=== PATIENT | male | born 1995 | race American Indian/Alaskan Native ===

== ENCOUNTER 2021-10-29 20:59 | Emergency (ER) | payer BC ==
[2021-10-29 22:11] VITALS: BP 147/94
--- NOTE | 2021-10-29 22:18 | XRay Report ---
CHEST 2 VIEWS INDICATION / CLINICAL INFORMATION: Chest pain. COMPARISON: None available. FINDINGS: SUPPORT DEVICES: None. HEART / MEDIASTINUM: No significant abnormality. LUNGS / PLEURA: No significant pulmonary abnormality. No significant pleural effusion. No pneumothora x. ADDITIONAL FINDINGS: No significant additional findings. IMPRESSION: 1. No acute abnormality of the chest. Signer Name: Teodoro Dong MD Signed: 10/29/2021 10:13 PM Workstation Name: [id number]
[2021-10-30] MEDS ORDERED: ALUM-MAG HYDROXIDE-SIMETHICONE 200-200-20MG/5ML ORAL LIQD 30 ML PO ONE (01:01)
[2021-10-30] MEDS ORDERED: LIDOCAINE VISCOUS 2% 15 ML ORAL LIQD PO ONE (01:01)
[2021-10-30] MEDS ORDERED: FAMOTIDINE 20 MG TAB PO ONE (01:01)
--- NOTE | 2021-10-30 05:57 | Emergency Department Report ---
ED General Adult HPI - General Chief complaint: Chest Pain Stated complaint: CHEST PAIN Source: patient Mode of arrival: Ambulatory Limitations: No Limitations - History of Present Illness Initial comments: Patient is a 26-year-old -[place] male with a history of morbid obesity who presents to the ED with complaint of acute onset persistent burning epigastric intermittent pain that radiates to the substernal area of the chest wall for the last 1 week. Patient states that the pain is worse whenever he eats any food or when he lays down to sleep. Patient denies cough, nausea and vomiting, diarrhea, dysuria, urinary frequency and urgency, shortness of breath, back pain, traumatic injury, heavy lifting, hematemesis, fever, chills, palpitations, headache, neck pain or diarrhea. MD Complaint: epigastric pain radiating to chest wall with burning sensation -: Gradual, week(s) (1) Location: chest, abdomen (epigastric) Radiation: non-radiation Severity scale (0 -10): 7 Quality: burning, aching Consistency: intermittent Improves with: none Worsens with: eating Associated Symptoms: denies other symptoms, chest pain, loss of appetite. denies: confusion, cough, diaphoresis, fever/chills, headaches, malaise, nausea/vomiting, rash, seizure, shortness of breath, syncope, weakness Treatments Prior to Arrival: none - Related Data Allergies Allergy/AdvReac Type Severity Reaction Status Date / Time No Known Allergies Allergy Unverified 10/29/21 21:55 ED Review of Systems ROS: Stated complaint: CHEST PAIN Other details as noted in HPI Constitutional: denies: chills, fever Eyes: denies: eye pain, eye discharge, vision change ENT: denies: ear pain, throat pain Respiratory: denies: cough, shortness of breath, wheezing Cardiovascular: chest pain (substernal). denies: palpitations Endocrine: no symptoms reported Gastrointestinal: abdominal pain (epigastric). denies: nausea, vomiting, diarrhea Genitourinary: denies: urgency, dysuria Musculoskeletal: denies: back pain, joint swelling, arthralgia Skin: denies: rash, lesions Neurological: denies: headache, weakness, paresthesias Psychiatric: denies: anxiety, depression Hematological/Lymphatic: denies: easy bleeding, easy bruising ED Past Medical Hx - Past Medical History Previous Medical History?: Yes Additional medical history: Morbid Obesity - Surgical History Past Surgical History?: Yes Additional Surgical History: Tonsillectomy - Social History Smoking Status: Current Every Day Smoker Substance Use Type: None ED Physical Exam - General Limitations: No Limitations General appearance: alert, in no apparent distress - Head Head exam: Present: atraumatic, normocephalic, normal inspection - Eye Eye exam: Present: normal appearance, PERRL, EOMI Pupils: Present: normal accommodation - ENT ENT exam: Present: normal exam, normal orophraynx, mucous membranes moist, TM's normal bilaterally, normal external ear exam - Neck Neck exam: Present: normal inspection, full ROM. Absent: tenderness - Respiratory Respiratory exam: Present: normal lung sounds bilaterally. Absent: respiratory distress, wheezes, rales, rhonchi, chest wall tenderness, decreased breath sounds - Cardiovascular Cardiovascular Exam: Present: regular rate, normal rhythm, normal heart sounds. Absent: systolic murmur, diastolic murmur, rubs, gallop - GI/Abdominal GI/Abdominal exam: Present: soft, normal bowel sounds. Absent: tenderness, guarding, rebound, hyperactive bowel sounds, hypoactive bowel sounds, organomegaly - Extremities Exam Extremities exam: Present: normal inspection, full ROM, normal capillary refill. Absent: tenderness, pedal edema, joint swelling - Back Exam Back exam: Present: normal inspection, full ROM. Absent: tenderness, CVA tenderness (R), CVA tenderness (L), muscle spasm, paraspinal tenderness, vertebral tenderness - Neurological Exam Neurological exam: Present: alert, oriented X3, CN II-XII intact, normal gait, reflexes normal - Psychiatric Psychiatric exam: Present: normal affect, normal mood, anxious - Skin Skin exam: Present: warm, dry, intact, normal color. Absent: rash ED Course Vital Signs 10/29/21 21:27 Temperature 98.5 F Pulse Rate 92 H Respiratory 18 Rate Blood Pressure 147/94 O2 Sat by Pulse 97 Oximetry ED Medical Decision Making - EKG Data EKG shows normal: sinus rhythm Rate: normal - EKG Data Interpretation: normal EKG 10/30/21 05:55 EKG shows normal sinus rhythm with a ventricular rate of [address] or T wave abnormalities. - Radiology Data Radiology results: report reviewed, image reviewed [facility] [address] [place] [address] XRay Report Signed Patient: ROME KEATING MR# : [id number] : 1995 Acct:[id number] Age/Sex: 26 / M ADM Date: 10/29/21 Loc: ED Attending Dr: Ordering Physician: CARLEY SPEARS MD Date of Service: 10/29/21 Procedure(s): XR chest routine 2V Accession Number(s): [id number] cc: CARLEY SPEARS MD Fluoro Time In Minutes: CHEST 2 VIEWS INDICATION / CLINICAL INFORMATION: Chest pain. COMPARISON: None available. FINDINGS: SUPPORT DEVICES: None. HEART / MEDIASTINUM: No significant abnormality. LUNGS / PLEURA: No significant pulmonary abnormality. No significant pleural effusion. No pneumothorax. ADDITIONAL FINDINGS: No significant additional findings. IMPRESSION: 1. No acute abnormality of the chest. Signer Name: Teodoro Dong MD Signed: 10/29/2021 10:13 PM Workstation Name: [id number] Transcribed By: MN Dictated By: Teodoro Dong MD Electronically Authenticated By: Teodoro Dong MD Signed Date/Time: 10/29/212212 DD/ 12 TD/TT: - Medical Decision Making This is a 26-year-old -[place] male with a history of morbid obesity who presents to the ED with complaint of acute onset persistent burning epigastric intermittent pain that radiates to the substernal area of the chest wall for the last 1 week. Patient states that the pain is worse whenever he eats any food or when he lays down to sleep. In the ED, patient is alert and oriented x3 and is not in any distress. Chest x-ray showed no acute cardiopulmonary abnormalities or pneumonitis. EKG shows normal sinus rhythm with a ventricular rate of [address] or T wave abnormalities. Patient's heart score is 0 and patient is PERC negative per Wells criteria. Labs were drawn and the patient was given antacids in the ED. Patient however eloped from the ED without letting the labs being drawn or receiving treatment with antacids. Patient therefore left AGAINST MEDICAL ADVICE from the ED while being treated in the ED. - Differential Diagnosis GERD; costochondritis; pneumonia; gastritis; ACS Critical care attestation.: If time is entered above; I have spent that time in minutes in the direct care of this critically ill patient, excluding procedure time. ED Disposition Clinical Impression: Acute nonspecific chest pain with low risk of coronary artery disease GERD (gastroesophageal reflux disease) Qualifiers: Esophagitis presence: esophagitis presence not specified Qualified Code(s): K21.9 - Gastro-esophageal reflux disease without esophagitis Disposition: 07 LEFT AGAINST MEDICAL ADVICE Is pt being admited?: No Does the pt Need Aspirin: No Condition: Undetermined Instructions: Chest Pain (ED), Chest Wall Pain, [id number], Nonspecific Chest Pain, Adult, [id number], Heartburn, [id number], Gastroesophageal Reflux Disease, Adult, [id number] Referrals: [facility] [Provider Group] - 3-5 Days Time of Disposition: 03:20 Print Language: AZERI
--- NOTE | 2021-10-30 08:57 | Electrocardiograph Report ---
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
== END 2021-10-30 07:00 | disposition left against medical advice (07) ==
LOC: ED 20:59
DX: R07.9 Chest pain, unspecified (principal); K21.9 Gastro-esophageal reflux disease without esophagitis; F17.200 Nicotine dependence, unspecified, uncomplicated
CPT/HCPCS: 71046; 93005; 99283